=== PATIENT | female | born 1990 | race African-American/Black ===

== ENCOUNTER 2021-04-29 16:05 | Emergency (ER) | payer SELFPAY ==
--- NOTE | 2021-04-29 16:52 | EDM.PDOC ---
ED HPI GENERAL MEDICAL PROBLEM - General Chief Complaint: [employer] Problem Stated Complaint: HEAVY BLEEDING Time Seen by Provider: 04/29/21 16:19 Source of Information: Reports: Patient History Limitations: Reports: No Limitations - History of Present Illness INITIAL COMMENTS - FREE TEXT/NARRATIVE: Patient is a 30-year-old female who presents today for heavy bleeding. Patient states that she had an ectopic back in June she was instructed afterwards to start control the control made her feel funny so she stopped taking it. She states that she had months to which she did not. But recently she started having heavy menstrual cycles. She states that she is having heavier bleeding but not use more than 1 pad she does not feel tired or weak. She denies any clots or tissue in it. She states that she is not on control and she says she is sexually active and not using protection. abdomen Pain Score (Numeric/FACES): 3 - Related Data Allergies Allergy/AdvReac Type Severity Reaction Status Date / Time No Known Allergies Allergy Verified 04/29/21 16:33 Home Meds: Home Meds . [No Known Home Meds] 04/29/21 [History] Past Medical History [employer] History: Reports: Ectopic , Polycystic Ovaries Hematologic History: Reports: Other (See Below) Other Hematologic History: Sickle cell carrier - Past Surgical History Female Surgical History: Reports: Other (See Below) Other Female Surgeries/Procedures: Surgery for ectopic 06/2020; bladder surgery 2011 Social & Family History - Family History Cardiac: Reports: Hypertension Hematologic: Reports: Sickle Cell Anemia Oncologic: Reports: Liver - Caffeine Use Caffeine Use: Reports: Tea - Recreational Drug Use Recreational Drug Use: Yes Recreational Drug Type: Reports: Marijuana/Hashish ED ROS GENERAL - Review of Systems Review Of Systems: See Below Constitutional: Reports: No Symptoms HEENT: Reports: No Symptoms Respiratory: Reports: No Symptoms Cardiovascular: Reports: No Symptoms Endocrine: Reports: No Symptoms GI/Abdominal: Reports: No Symptoms : Reports: Irregular Menses Musculoskeletal: Reports: No Symptoms Skin: Reports: No Symptoms Neurological: Reports: No Symptoms Psychiatric: Reports: No Symptoms Hematologic/Lymphatic: Reports: No Symptoms Immunologic: Reports: No Symptoms ED EXAM, RENAL/ - Physical Exam Exam: See Below Exam Limited By: No Limitations General Appearance: Alert, WD/WN, No Apparent Distress Eye Exam: Bilateral Eye: EOMI, PERRL Ears: Normal External Exam, Normal TMs Head: Atraumatic Neck: Normal Inspection Respiratory/Chest: No Respiratory Distress, Lungs Clear, Normal Breath Sounds Cardiovascular: Normal Peripheral Pulses, Regular Rate, Rhythm GI/Abdominal: Normal Bowel Sounds, Soft, Tender (Female) Exam: Normal External Exam, Normal Speculum Exam, Normal Bimanual Exam, Vaginal Bleeding Neurological: Alert, Oriented, Normal Cognition, Normal Gait Course - Vital Signs Last Recorded V/S: Last Vital Signs Temp 97.7 F 04/29/21 16:34 Pulse 69 04/29/21 17:24 Resp 16 04/29/21 17:24 BP 93/58 L 04/29/21 17:24 Pulse Ox 99 04/29/21 17:24 - Orders/Labs/Meds Orders: Active Orders 24 hr Category Date Time Status UA W/GALI RFLX IF INDICATED [URIN] Stat Lab 04/29/21 17:35 Ordered Labs: Laboratory Tests 04/29/21 04/29/21 04/29/21 Range/Units 17:07 17:07 17:07 WBC 4.30 (4.0-11.0) K/uL RBC 4.08 L (4.30-5.90) M/uL Hgb 12.5 (12.0-16.0) g/dL Hct 36.2 (36.0-46.0) % MCV 88.7 (80.0-98.0) fL MCH 30.6 (27.0-32.0) pg MCHC 34.5 (31.0-37.0) g/dL RDW Std Deviation 38.7 (28.0-62.0) fl RDW Coeff of Gerald 12 (11.0-15.0) % Plt Count 254 (150-400) K/uL MPV 9.50 (7.40-12.00) fL Neut % (Auto) 39.3 L (48.0-80.0) % Lymph % (Auto) 50.5 H (16.0-40.0) % Harper % (Auto) 7.4 (0.0-15.0) % Eos % (Auto) 2.6 (0.0-7.0) % Baso % (Auto) 0.2 (0.0-1.5) % Neut # (Auto) 1.7 (1.4-5.7) K/uL Lymph # (Auto) 2.2 (0.6-2.4) K/uL Harper # (Auto) 0.3 (0.0-0.8) K/uL Eos # (Auto) 0.1 (0.0-0.7) K/uL Baso # (Auto) 0.0 (0.0-0.1) K/uL Nucleated RBC % 0.0 /100WBC Nucleated RBCs # 0 K/uL INR 1.08 APTT 22.9 (18.6-31.3) SEC Sodium 142 (136-145) mmol/L Potassium 3.9 (3.5-5.1) mmol/L Chloride 106 (98-107) mmol/L Carbon Dioxide 29.6 (21.0-32.0) mmol/L BUN 11 (7.0-18.0) mg/dL Creatinine 0.8 (0.6-1.0) mg/dL Est Cr Clr Drug Dosing 90.56 mL/min Estimated GFR (MDRD) > 60.0 ml/min Glucose 77 (74-106) mg/dL Calcium 8.9 (8.5-10.1) mg/dL Total Bilirubin 0.8 (0.2-1.0) mg/dL AST 13 L (15-37) IU/L ALT 15 (14-63) IU/L Alkaline Phosphatase 43 L (46-116) U/L Total Protein 7.6 (6.4-8.2) g/dL Albumin 3.6 (3.4-5.0) g/dL Globulin 4.0 (2.6-4.0) g/dL Albumin/Globulin Ratio 0.9 (0.9-1.6) HCG, Quant < 1.0 mIU/mL - Re-Assessments/Exams Free Text/Narrative Re-Assessment/Exam: 04/29/21 17:49 Patient is test is negative patient likely having a regular menstrual cycle. 04/29/21 18:05 Pelvic exam no adnexal tenderness we also swab for GC chlamydia. Patient did not give a urine sample if urine is normal will discharge home if negative urine is positive we will still treat and discharge home have patient follow-up with [employer]. Departure - Departure Time of Disposition: 18:06 Disposition: Home, Self-Care 01 Condition: Good Clinical Impression: Irregular menstrual bleeding - Discharge Information *PRESCRIPTION DRUG MONITORING PROGRAM REVIEWED*: Not Applicable *COPY OF PRESCRIPTION DRUG MONITORING REPORT IN PATIENT LIOR: Not Applicable Instructions: Dysmenorrhea, [id number] Referrals: PCP,None [Primary Care Provider] - Forms: ED Department Discharge Additional Instructions: You were seen today for heavy menstrual bleeding. Your test is negative and this is likely related to your regular menstrual cycle. We recommend you follow-up with [employer] she may need to be restarted back on the control if you have any other concerning signs or symptoms please return to the ED. The following information is given to patients seen in the emergency department who are being discharged to home. This information is to outline your options for follow-up care. We provide all patients seen in our emergency department with a follow-up referral. The need for follow-up, as well as the timing and circumstances, are variable depending upon the specifics of your emergency department visit. If you don't have a primary care physician on staff, we will provide you with a referral. We always advise you to contact your personal physician following an emergency department visit to inform them of the circumstance of the visit and for follow-up with them and/or the need for any referrals to a consulting specialist. The emergency department will also refer you to a specialist when appropriate. This referral assures that you have the opportunity for follow-up care with a specialist. All of these measure are taken in an effort to provide you with optimal care, which includes your follow-up. Under all circumstances we always encourage you to contact your private physician who remains a resource for coordinating your care. When calling for follow-up care, please make the office aware that this follow-up is from your recent emergency room visit. If for any reason you are refused follow-up, please contact the [facility] Emergency Department at and asked to speak to the emergency department charge nurse. Please follow up with your primary care physician. If you do not have a primary care physician, see below: [facility] [address] [place] [id number] [facility] [address] [address] Sepsis Event Note (ED) - Evaluation Sepsis Screening Result: No Definite Risk - Focused Exam Vital Signs: Vital Signs Temp Pulse Resp BP Pulse Ox 04/29/21 17:24 69 16 93/58 L 99 04/29/21 16:34 97.7 F 74 18 108/55 L 99 - My Orders Last 24 Hours: My Active Orders 04/29/21 17:35 UA W/GALI RFLX IF INDICATED [URIN] Stat - Assessment/Plan Last 24 Hours: My Active Orders 04/29/21 17:35 UA W/GALI RFLX IF INDICATED [URIN] Stat Plan: Patient is a 30-year-old female presents today for vaginal bleeding. Patient possibly could be we will do a urine test check CBC and pelvic exam.
[2021-04-29 17:42] LABS: BLOOD UREA NITROGEN,BUN 11 mg/dL (7.0-18.0); CARBON DIOXIDE,CO2 29.6 mmol/L (21.0-32.0); CHLORIDE,CL 106 mmol/L (98-107); GLUCOSE RANDOM 77 mg/dL (74-106); POTASSIUM,K 3.9 mmol/L (3.5-5.1); SODIUM,NA 142 mmol/L (136-145)
[2021-05-03 13:13] LABS: C.TRACHOMATIS BY TMA Negative (Negative); N.GONORRHOEAE BY TMA Negative (Negative)
== END 2021-04-29 19:25 | disposition home or self-care (01) ==
LOC: MW.ED 16:05
DX: N93.9 Abnormal uterine and vaginal bleeding, unspecified (principal); N92.6 Irregular menstruation, unspecified
CPT/HCPCS: 36415; 80053; 84702; 85025; 85610; 85730; 87480; 87491; 87510; 87591; 87660; 99284

== ENCOUNTER 2021-06-06 12:18 | Emergency (ER) | payer SELFPAY ==
[2021-06-06 14:33] LABS: BLOOD UREA NITROGEN,BUN 9 mg/dL (7.0-18.0); CARBON DIOXIDE,CO2 25.1 mmol/L (21.0-32.0); CHLORIDE,CL 105 mmol/L (98-107); GLUCOSE RANDOM 116 mg/dL (74-106); POTASSIUM,K 3.8 mmol/L (3.5-5.1); SODIUM,NA 141 mmol/L (136-145)
== END 2021-06-06 15:18 | disposition home or self-care (01) ==
LOC: MW.ED 12:18
DX: N92.6 Irregular menstruation, unspecified (principal)
CPT/HCPCS: 36415; 80053; 81001; 81025; 85025; 99284